=== PATIENT | male | born 1990 | race Caucasian/White ===

== ENCOUNTER → 2016-12-02 | Outpatient (CLI) | payer MEDICAID, SELFPAY | LOC: M OUTALCOH 12:59 | PROVIDERS: ATTEND Psychiatry & Neurology Psychiatry | DX: Z13.9 Encounter for screening, unspecified (principal); F15.20 Other stimulant dependence, uncomplicated; F11.10 Opioid abuse, uncomplicated ==

== ENCOUNTER → 2017-05-28 | Outpatient (CLI) | payer MEDICAID | LOC: M OUTALCOH 08:02 | DX: Z13.9 Encounter for screening, unspecified (principal); F11.20 Opioid dependence, uncomplicated ==

== ENCOUNTER 2017-06-05 14:27 | Outpatient (RCR) | payer MEDICAID, SELFPAY | END 2017-07-05 | LOC: M OUTALCOH 14:27 | DX: F15.20 Other stimulant dependence, uncomplicated (principal); F17.200 Nicotine dependence, unspecified, uncomplicated; F11.20 Opioid dependence, uncomplicated ==

== ENCOUNTER 2017-07-30 10:52 | Outpatient (RCR) | payer MEDICAID | END 2017-08-04 | LOC: M OUTALCOH 10:52 | DX: F15.20 Other stimulant dependence, uncomplicated (principal); F17.200 Nicotine dependence, unspecified, uncomplicated; F11.20 Opioid dependence, uncomplicated ==

== ENCOUNTER 2017-08-08 16:03 | Outpatient (RCR) | payer MEDICAID | END 2017-09-04 | LOC: M OUTALCOH 16:03 | DX: F15.20 Other stimulant dependence, uncomplicated (principal); F17.200 Nicotine dependence, unspecified, uncomplicated; F11.20 Opioid dependence, uncomplicated ==

== ENCOUNTER 2019-12-10 12:14 | Emergency (ER) | payer MEDICAID, OTHER, SELFPAY ==
[~2019-12-10] VITALS: Ht 182.9 cm; Wt 81.2 kg
[2019-12-10 13:21] LABS: BASO # 0.1 10^3/uL (0.0-0.2); BASO % 0.4 % (0.0-1.0); EOS # 0.1 10^3/uL (0.0-0.5); EOS % 0.7 % (0.0-3.0); HEMATOCRIT 41.5 % (42.0-52.0); HEMOGLOBIN 14.3 g/dl (13.5-17.5); LYMPH # 1.9 10^3/uL (1.5-5.0); LYMPH % 16.1 % (24.0-44.0); MEAN CORPUSCULAR HEMOGLOBIN 30.8 pg (27.0-33.0); MEAN CORPUSCULAR HGB CONC 34.5 g/dl (32.0-36.5); MEAN CORPUSCULAR VOLUME 89.2 fl (80.0-96.0); MONO # 0.8 10^3/uL (0.0-0.8); MONO % 6.8 % (0.0-5.0); NEUTROPHILS # 8.9 10^3/uL (1.5-8.5); NEUTROPHILS % 75.7 % (36.0-66.0); PLATELET COUNT, AUTOMATED 265 10^3/uL (150-450); RED BLOOD COUNT 4.65 10^6/uL (4.30-6.10); WHITE BLOOD COUNT 11.7 10^3/uL (4.0-10.0)
[2019-12-10 13:44] LABS: BLOOD UREA NITROGEN 13 MG/DL (7-18); CALCIUM LEVEL 9.4 MG/DL (8.5-10.1); CARBON DIOXIDE LEVEL 27 MEQ/L (21-32); CHLORIDE LEVEL 106 MEQ/L (98-107); GLOMERULAR FILTRATION RATE > 60.0 (>60); GLUCOSE, FASTING 100 MG/DL (70-100); POTASSIUM SERUM 4.5 MEQ/L (3.5-5.1); SODIUM LEVEL 140 MEQ/L (136-145)
--- NOTE | 2019-12-10 13:50 | REPVR ---
PROCEDURE INFORMATION: Exam: US Left Non-Vascular Joint or Other Extremity Structure, Limited Lower Extremity Exam date and time: 12/10/2019 1:30 PM Age: 29 years old Clinical indication: Injury or trauma; Injury history: Unknown; Initial encounter; Swelling (edema); Lower leg; Left; Additional info: Anterior cason redness/swelling TECHNIQUE: Imaging protocol: Limited ultrasound of the soft tissues of the left lower leg with combined grayscale and color flow imaging. COMPARISON: No relevant prior studies available. FINDINGS: Subcutaneous edema. Poorly defined 1.9 x 0.7 by 1.8 cm complex cystic collection in the subcutaneous soft tissues of the left lower leg. The principal diagnostic considerations would include abscess and hematoma, and clinical correlation is recommended. IMPRESSION: Poorly defined 1.9 x 0.7 by 1.8 cm complex cystic collection in the subcutaneous soft tissues of the left lower leg. The principal diagnostic considerations would include abscess and hematoma, and clinical correlation is recommended. Electronically signed by: Josue Marte On 12/10/2019 13:49:57 PM
--- NOTE | 2019-12-10 13:51 | REPVR ---
PROCEDURE INFORMATION: Exam: US Duplex Left Lower Extremity Veins, Limited Exam date and time: 12/10/2019 1:30 PM Age: 29 years old Clinical indication: Swelling (edema) of limb; Lower extremity, left; Additional info: Lle swelling, ivdu, R/O dvt TECHNIQUE: Imaging protocol: Real-time Duplex ultrasound of the Left Lower Extremity with 2-D byers scale, color Doppler flow and spectral waveform analysis with image documentation. Limited exam focused on the left lower extremity veins. COMPARISON: No relevant prior studies available. FINDINGS: Left deep veins: No deep venous thrombosis in the visualized left common femoral, femoral, or popliteal veins. Left superficial veins: Saphenofemoral junction is patent without thrombus. Soft tissues: Unremarkable. Lymph nodes: Subcentimeter inguinal lymph node. IMPRESSION: No deep venous thrombosis in the visualized left lower extremity. Electronically signed by: Josue Marte On 12/10/2019 13:51:05 PM
[2019-12-10] MEDS ORDERED: LIDOCAINE W/EPINEPHRINE 1% 20ML VIAL INFIL ONE (14:00)
[2019-12-10] MEDS ORDERED: DOXYCYCLINE HYCLATE 100 MG in D5W MINI-BAG PLUS 100 ML IV ONE (14:15)
[2019-12-10] MEDS ORDERED: KETOROLAC 30 MG/ML 1ML VIAL IV ONE (14:30)
[2019-12-10] MEDS ORDERED: BACT800T5 PO (14:50)
[2019-12-10] MEDS ORDERED: BOOSTRIX/ADACEL VACCINE (DIPHTH/PERTUSS/ACELL/TETANUS) 0.5ML SYR IM ONE (15:30)
[2019-12-10 15:49] VITALS: BP 133/82
--- NOTE | 2019-12-11 14:21 | ED PDOC ---
Post-Departure Follow-Up certified letter sent to pt re formal report of extrem us for fu Lindsey Washington MD Dec 11, 2019 14:21
== END 2019-12-10 15:51 | disposition home or self-care (01) ==
LOC: M ED 12:14
DX: L02.416 Cutaneous abscess of left lower limb (principal); F17.200 Nicotine dependence, unspecified, uncomplicated; Z86.14 Personal history of Methicillin resistant Staphylococcus aureus infection
CPT/HCPCS: 76882; 80048; 85025; 87040; 87070; 87077; 87186; 87205; 90471; 90715; 93971; 96365; 96375; 99283; J1885

== ENCOUNTER → 2021-02-07 | Outpatient (CLI) | payer OTHER ==
[~2021-02-07] MED LIST: BACT800T5 PO
[2021-02-07 13:58] LABS: HEMATOCRIT 44.6 % (42.0-52.0); HEMOGLOBIN 15.1 g/dl (13.5-17.5); MEAN CORPUSCULAR HEMOGLOBIN 29.7 pg (27.0-33.0); MEAN CORPUSCULAR HGB CONC 33.9 g/dl (32.0-36.5); MEAN CORPUSCULAR VOLUME 87.8 fl (80.0-96.0); PLATELET COUNT, AUTOMATED 229 10^3/uL (150-450); RED BLOOD COUNT 5.08 10^6/uL (4.30-6.10); WHITE BLOOD COUNT 7.6 10^3/uL (4.0-10.0)
[2021-02-07 14:32] LABS: ALBUMIN 4.3 GM/DL (3.2-5.2); ALT/SGPT 20 U/L (12-78); BILIRUBIN,TOTAL 0.7 MG/DL (0.2-1.0); BLOOD UREA NITROGEN 13 MG/DL (7-18); CALCIUM LEVEL 9.6 MG/DL (8.5-10.1); CARBON DIOXIDE LEVEL 29 MEQ/L (21-32); CHLORIDE LEVEL 106 MEQ/L (98-107); CREATININE FOR GFR 1.08 MG/DL (0.70-1.30); GLOMERULAR FILTRATION RATE > 60.0 (>60); GLUCOSE, FASTING 100 MG/DL (70-100); POTASSIUM SERUM 4.2 MEQ/L (3.5-5.1); SODIUM LEVEL 138 MEQ/L (136-145); TOTAL PROTEIN 7.5 GM/DL (6.4-8.2)
[2021-02-07 14:51] LABS: HEPATITIS B SURFACE ANTIGEN NEGATIVE (NEGATIVE)
[2021-02-07 15:20] LABS: HIV 1&2 SCREEN CENTAUR NEGATIVE (NEGATIVE)
[2021-02-07 15:26] LABS: HEPATITIS C VIRUS ABY INDEX > 11.0 INDEX (<0.8)
[2021-02-07 16:08] LABS: GC DNA AMPLIFICATION NEGATIVE (NEGATIVE)
--- NOTE | 2021-02-07 22:23 | ECGEPIP ---
[facility] Test Date: 2021-02-07 Pat Name: JUAN MORLEY Department: Room: - Gender: Male Environmental Technician: lucio : [id number] Requested By: Axel Azul Order Number: [id number] Reading MD: Bijan Lambert Measurements Intervals [place] Rate: 64 P: 31 NM: 148 QRS: 50 QRSD: 98 T: 30 QT: 374 QTc: 385 Interpretive Statements Sinus rhythm Poor R wave progression No prior Electronically Signed on 02-07-2021 22:23:22 EDT by Bijan Lambert
== END ==
LOC: M EKG 13:06
PROVIDERS: ATTEND Family Medicine
DX: F11.20 Opioid dependence, uncomplicated (principal)

== ENCOUNTER 2021-06-12 13:52 | Emergency (ER) | payer OTHER ==
[~2021-06-12] VITALS: Ht 182.9 cm; Wt 104.5 kg
[2021-06-12 13:53] VITALS: BP 133/76
[2021-06-12] MEDS ORDERED: SUBO8MIS (14:03)
[2021-06-12] MEDS ORDERED: PRAZ1CAP (14:03)
== END 2021-06-12 16:56 | disposition left against medical advice (07) ==
LOC: M ED 13:52
DX: Z53.21 Procedure and treatment not carried out due to patient leaving prior to being seen by health care provider (principal)

== ENCOUNTER → 2022-02-11 | Outpatient (CLI) | payer OTHER ==
[~2022-02-11] MED LIST changes: +PRAZ1CAP; +SUBO8MIS
[2022-02-11 14:32] LABS: HEMATOCRIT 44.6 % (42.0-52.0); HEMOGLOBIN 14.9 g/dl (13.5-17.5); MEAN CORPUSCULAR HEMOGLOBIN 29.4 pg (27.0-33.0); MEAN CORPUSCULAR HGB CONC 33.4 g/dl (32.0-36.5); MEAN CORPUSCULAR VOLUME 88.1 fl (80.0-96.0); PLATELET COUNT, AUTOMATED 199 10^3/uL (150-450); RED BLOOD COUNT 5.06 10^6/uL (4.30-6.10)
[2022-02-11 16:16] LABS: ALBUMIN 4.3 GM/DL (3.2-5.2); ALT/SGPT 15 U/L (12-78); BILIRUBIN,TOTAL 0.3 MG/DL (0.2-1.0); BLOOD UREA NITROGEN 14 MG/DL (7-18); CALCIUM LEVEL 9.6 MG/DL (8.5-10.1); CARBON DIOXIDE LEVEL 29 MEQ/L (21-32); CHLORIDE LEVEL 106 MEQ/L (98-107); CREATININE FOR GFR 0.98 MG/DL (0.70-1.30); GLOMERULAR FILTRATION RATE > 60.0 (>60); GLUCOSE, FASTING 93 MG/DL (70-100); HEPATITIS B SURFACE ANTIGEN NEGATIVE (NEGATIVE); POTASSIUM SERUM 4.4 MEQ/L (3.5-5.1); SODIUM LEVEL 140 MEQ/L (136-145); TOTAL PROTEIN 7.2 GM/DL (6.4-8.2)
[2022-02-11 16:43] LABS: GC DNA AMPLIFICATION NEGATIVE (NEGATIVE)
[2022-02-11 16:49] LABS: HIV 1&2 SCREEN CENTAUR NEGATIVE (NEGATIVE)
[2022-02-11 17:01] LABS: HEPATITIS C VIRUS ABY INDEX > 11.0 INDEX (<0.8)
== END ==
LOC: M LAB 12:25
PROVIDERS: ATTEND Family Medicine
DX: F11.20 Opioid dependence, uncomplicated (principal)